=== PATIENT | male | born 1990 | race Caucasian/White ===

== ENCOUNTER 2021-03-21 00:30 | Emergency (ER) | payer OTHER ==
[~2021-03-21] VITALS: Ht 177.8 cm; Wt 95.3 kg
[2021-03-21 00:30] VITALS: BP 134/69
--- NOTE | 2021-03-21 00:30 | NUR ---
CURTIS ALARCON. TAKEN TO CHAIR C
--- NOTE | 2021-03-21 00:48 | NUR ---
PATIENT [facility] [employer]. PATIENT EXAMINED BY DR. PATRICIO. PATIENT MEDICALLY CLEARED AND RELEASED IN CUSTODY IN STABLE CONDITION. ORIGINAL PRE-BOOK FORM GIVEN TO OFFICER ROSARIO, #[id number]
== END 2021-03-21 00:48 ==
LOC: MED 00:30
DX: F15.129 Other stimulant abuse with intoxication, unspecified (principal); Z02.89 Encounter for other administrative examinations; V89.2XXA Person injured in unspecified motor-vehicle accident, traffic, initial encounter; Y93.89 Activity, other specified; Y92.89 Other specified places as the place of occurrence of the external cause; Y99.8 Other external cause status
CPT/HCPCS: 99283